=== PATIENT | male | born 2000 | race Two or more races ===

== ENCOUNTER 2020-05-16 00:18 | Emergency (ER) | payer SELFPAY ==
[~2020-05-16] VITALS: Ht 177.8 cm; Wt 75.0 kg
[2020-05-16 00:30] VITALS: BP 138/89
[2020-05-16] MEDS ORDERED: SODIUM CHLORIDE 0.9% 1,000 ML IV ONE (00:45)
[2020-05-16] MEDS ORDERED: FentaNYL CITRATE-PF 100 MCG/2 ML VIAL IVP ONE (00:45)
== END 2020-05-16 00:56 | disposition short-term general hospital (02) ==
LOC: EMS 00:20
DX: S40.212A Abrasion of left shoulder, initial encounter (principal); V49.69XA Unspecified car occupant injured in collision with other motor vehicles in traffic accident, initial encounter; Y93.89 Activity, other specified; Y92.413 State road as the place of occurrence of the external cause; Y99.8 Other external cause status
CPT/HCPCS: 96361; 96374; 99285; J3010; J7030